=== PATIENT | male | born 1970 | race Caucasian/White ===

== ENCOUNTER 2016-09-07 09:41 | Day surgery (SDC) | payer OTHER ==
[~2016-09-07] VITALS: Ht 182.9 cm; Wt 108.9 kg
[~2016-09-07 09:41] MED LIST: LEXAPRO10 MG PO; LORCET 5-325 M1 EACH PO; MINIPRESS1 MG PO; NEURONTIN800 MG PO; RELAFEN500 M1 PO; TENORMIN25 MG PO; TENORMIN50 MG PO; ZANAFLEX4 MG PO
== END 2016-09-07 12:30 | disposition home or self-care (01) ==
LOC: PAIN 09:41 → SDC 11:00 → PAIN 11:00
DX: M47.896 Other spondylosis, lumbar region (principal); M54.5 Low back pain; I10 Essential (primary) hypertension; F41.1 Generalized anxiety disorder; M25.559 Pain in unspecified hip
CPT/HCPCS: J1030; J2250; J3010; S0020

== ENCOUNTER 2016-09-14 08:11 | Day surgery (SDC) | payer OTHER ==
[~2016-09-14] VITALS: Ht 182.9 cm; Wt 108.9 kg
== END 2016-09-14 10:05 | disposition home or self-care (01) ==
LOC: PAIN 08:11 → SDC 11:00
DX: M47.896 Other spondylosis, lumbar region (principal); M54.5 Low back pain; F41.1 Generalized anxiety disorder; M19.90 Unspecified osteoarthritis, unspecified site; I10 Essential (primary) hypertension; M79.1 Myalgia; M25.559 Pain in unspecified hip; F17.200 Nicotine dependence, unspecified, uncomplicated
CPT/HCPCS: J1030; J2250; J3010; S0020

== ENCOUNTER 2016-12-06 12:39 | Emergency (ER) | payer OTHER ==
[~2016-12-06] VITALS: Ht 180.3 cm; Wt 103.0 kg
[2016-12-06] MEDS ORDERED: OXYCODONE HCL5 MG PO (13:02)
[2016-12-06 13:21] VITALS: BP 138/61
== END 2016-12-06 13:21 | disposition home or self-care (01) ==
LOC: RME 12:39 → EME 12:39 → RME 13:21
DX: M54.9 Dorsalgia, unspecified (principal); Z76.0 Encounter for issue of repeat prescription; F17.200 Nicotine dependence, unspecified, uncomplicated; Z87.442 Personal history of urinary calculi
CPT/HCPCS: 99281; 99284

== ENCOUNTER 2016-12-25 18:23 | Emergency (ER) | payer OTHER ==
[~2016-12-25] VITALS: Ht 180.3 cm; Wt 101.2 kg
[~2016-12-25 18:23] MED LIST changes: +OXYCODONE HCL5 MG PO
[2016-12-25 18:27] VITALS: BP 136/78
== END 2016-12-25 22:12 | disposition left against medical advice (07) ==
LOC: EME 18:23
DX: G89.29 Other chronic pain (principal); M54.5 Low back pain; Z87.442 Personal history of urinary calculi; F17.200 Nicotine dependence, unspecified, uncomplicated
CPT/HCPCS: 99281; 99284

== ENCOUNTER 2017-01-17 08:16 | Emergency (ER) | payer OTHER ==
[~2017-01-17] VITALS: Ht 180.3 cm; Wt 102.0 kg
[2017-01-17 09:28] LABS: BASOPHIL COUNT 0.1 K/uL (0-0.1); EOSINOPHIL (%) 2.6 % (0-5); EOSINOPHIL COUNT 0.2 K/uL (0-0.3); HEMATOCRIT 45.3 % (38.0-50.0); IMMATURE GRANULOCYTE (%) 0.3 % (0.0-0.7); INSTRUMENT ABS NEUTROPHIL CT 2.8 K/uL; LYMPHOCYTE COUNT 2.1 K/uL (1.0-2.8); MCH 32.4 PG (29.0-34.0); MCV 95.4 FL (86-99); MEAN PLAT.VOLUME 9.5 uM^3 (9.0-12.4); MONOCYTE (%) 9.8 % (3-12); MONOCYTE COUNT 0.6 K/uL (0-0.8); NEUTROPHIL (%) 49.6 % (45-76); NEUTROPHIL COUNT 2.8 K/uL (1.8-6.4); PLATELET COUNT 276 K/uL (156-360); RBC DIS.WIDTH-SD 42.6 % (39-53); RED BLOOD COUNT 4.75 M/uL (4.00-5.50); WHITE BLOOD COUNT 5.7 K/uL (4.1-10.2)
[2017-01-17 09:35] LABS: CHLORIDE 110 mEq/L (99-109); POTASSIUM 3.6 mEq/L (3.7-5.4); SODIUM 141 mEq/L (136-147)
[2017-01-17 09:37] LABS: GLUCOSE 127 mg/dL (70-99)
[2017-01-17 09:38] LABS: ANION GAP 9 MEQ/L (2-14)
[2017-01-17 09:41] LABS: GFR ESTIMATE (CALCULATED) > 59 mL/min/
[2017-01-17 09:42] LABS: UREA NITROGEN (BUN) 13 mg/dL (9-23)
[2017-01-17 09:47] LABS: TROP-I INTERPRETATION NEGATIVE; TROPONIN-I < 0.01 ng/mL (0.0-0.30)
[2017-01-17 10:10] VITALS: BP 126/74
== END 2017-01-17 10:12 | disposition home or self-care (01) ==
LOC: EME 08:16
PROVIDERS: Personal Emergency Response Attendant
PROC: 5A2204Z Restoration of Cardiac Rhythm, Single (ICD-10-PCS; principal; 2017-01-17)
DX: I47.1 Supraventricular tachycardia (principal); I48.91 Unspecified atrial fibrillation; F41.9 Anxiety disorder, unspecified; G89.29 Other chronic pain; M54.9 Dorsalgia, unspecified; F17.200 Nicotine dependence, unspecified, uncomplicated
CPT/HCPCS: 71010; 80048; 84484; 85025; 93005; 99281; 99284; J0153; J1885

== ENCOUNTER 2017-01-19 15:42 | Emergency (ER) | payer OTHER ==
[~2017-01-19] VITALS: Ht 180.3 cm; Wt 101.5 kg
[2017-01-19 16:39] LABS: HEMATOCRIT 47.8 % (38.0-50.0); MCH 32.3 PG (29.0-34.0); MCHC 34.3 G/DL (30.0-36.0); MCV 94.3 FL (86-99); MEAN PLAT.VOLUME 9.3 uM^3 (9.0-12.4); PLATELET COUNT 299 K/uL (156-360); RBC DIS.WIDTH-CV 11.9 % (11.8-14.6); RBC DIS.WIDTH-SD 41.2 % (39-53); RED BLOOD COUNT 5.07 M/uL (4.00-5.50); WHITE BLOOD COUNT 8.9 K/uL (4.1-10.2)
[2017-01-19 16:48] LABS: CHLORIDE 104 mEq/L (99-109); POTASSIUM 4.1 mEq/L (3.7-5.4); SODIUM 139 mEq/L (136-147)
[2017-01-19 16:53] LABS: GFR ESTIMATE (CALCULATED) > 59 mL/min/
[2017-01-19 16:54] LABS: UREA NITROGEN (BUN) 12 mg/dL (9-23)
[2017-01-19 16:59] LABS: TROP-I INTERPRETATION NEGATIVE; TROPONIN-I 0.05 ng/mL (0.0-0.30)
[2017-01-19 17:02] LABS: GLUCOSE 92 mg/dL (70-99)
[2017-01-19 17:04] LABS: ANION GAP 9 MEQ/L (2-14)
[2017-01-19 17:08] LABS: CREATINE KINASE 186 IU/L (1-294); TOTAL CK 186 IU/L (1-294)
[2017-01-19 17:14] LABS: CK-MB 1.2 ng/mL (0.0-4.9)
[2017-01-19 18:04] VITALS: BP 144/77
[2017-01-19] MEDS ORDERED: PERCOCET 5/31 TABLET PO (18:05)
== END 2017-01-19 18:11 | disposition left against medical advice (07) ==
LOC: EME 15:42
DX: R07.89 Other chest pain (principal); Z87.442 Personal history of urinary calculi; F17.200 Nicotine dependence, unspecified, uncomplicated
CPT/HCPCS: 71020; 80048; 82550; 82553; 83880; 84484; 85027; 93005; 99281; 99282; J7030

== ENCOUNTER 2017-03-10 12:33 | Emergency (ER) | payer OTHER ==
[~2017-03-10] VITALS: Ht 180.3 cm; Wt 93.3 kg
[~2017-03-10 12:33] MED LIST changes: +PERCOCET 5/31 TABLET PO
[2017-03-10 13:29] LABS: EOSINOPHIL (%) 1.6 % (0-5); EOSINOPHIL COUNT 0.1 K/uL (0-0.3); IMMATURE GRANULOCYTE (%) 0.3 % (0.0-0.7); INSTRUMENT ABS NEUTROPHIL CT 3.8 K/uL; LYMPHOCYTE COUNT 2.4 K/uL (1.0-2.8); MCHC 34.2 G/DL (30.0-36.0); MCV 93.6 FL (86-99); MEAN PLAT.VOLUME 8.9 uM^3 (9.0-12.4); MONOCYTE (%) 8.4 % (3-12); MONOCYTE COUNT 0.6 K/uL (0-0.8); NEUTROPHIL (%) 54.4 % (45-76); NEUTROPHIL COUNT 3.8 K/uL (1.8-6.4); PLATELET COUNT 289 K/uL (156-360); RBC DIS.WIDTH-CV 12.2 % (11.8-14.6); RBC DIS.WIDTH-SD 42.5 % (39-53); RED BLOOD COUNT 4.81 M/uL (4.00-5.50); WHITE BLOOD COUNT 6.9 K/uL (4.1-10.2)
[2017-03-10 13:38] LABS: CHLORIDE 101 mEq/L (99-109); POTASSIUM 4.3 mEq/L (3.7-5.4); SODIUM 139 mEq/L (136-147)
[2017-03-10 13:40] LABS: GLUCOSE 103 mg/dL (70-99)
[2017-03-10 13:42] LABS: ANION GAP 11 MEQ/L (2-14)
[2017-03-10 13:44] LABS: GFR ESTIMATE (CALCULATED) > 59 mL/min/
[2017-03-10 13:45] LABS: UREA NITROGEN (BUN) 9 mg/dL (9-23)
[2017-03-10 13:54] LABS: TROP-I INTERPRETATION NEGATIVE; TROPONIN-I < 0.01 ng/mL (0.0-0.30)
[2017-03-10] MEDS ORDERED: PERCOCET 2.51 TABLET PO (16:00)
[2017-03-10 16:14] VITALS: BP 126/75
[2017-03-10] MEDS ORDERED: PERCOCET 5/31 TABLET PO (16:40)
== END 2017-03-10 16:17 | disposition home or self-care (01) ==
LOC: EME 12:33
PROVIDERS: Emergency Medicine
DX: M54.5 Low back pain (principal); R07.89 Other chest pain; F41.9 Anxiety disorder, unspecified; F17.210 Nicotine dependence, cigarettes, uncomplicated; Z87.442 Personal history of urinary calculi
CPT/HCPCS: 71010; 80048; 84484; 85025; 93005; 94640; 99281; 99285